=== PATIENT | male | born 1990 | race Caucasian/White ===

== ENCOUNTER 2020-04-26 11:37 | Emergency (ER) | payer OTHER ==
[~2020-04-26] VITALS: Ht 175.2 cm; Wt 81.6 kg
[2020-04-26 12:47] LABS: BASO # 0.1 10*3/uL (0.0-0.1); BASO % 1.2 % (0.0-1.0); EOS # 0.2 10*3/uL (0.0-0.4); EOS % 3.3 % (1.0-4.0); HEMATOCRIT 45.7 % (42.0-52.0); LYMPH # 1.5 10*3/uL (1.3-4.4); LYMPH % 25.5 % (27.0-41.0); MEAN CELL VOLUME 83.4 fl (80.0-94.0); MEAN CORPUSCULAR HGB 29.7 pg (27.0-31.0); MEAN CORPUSCULAR HGB CONC 35.7 g/dl (33.0-37.0); MEAN PLATELET VOLUME 10.2 fl (9.6-12.3); MONO # 0.5 10*3/uL (0.1-1.0); MONO % 8.7 % (3.0-9.0); NEUT # 3.5 10*3/uL (2.3-7.9); NEUT % 61.1 % (47.0-73.0); PLATELET COUNT AUTOMATED 253 10*3/uL (130-400); RED BLOOD COUNT 5.48 10*6/uL (4.50-5.90); RED CELL DISTRI WIDTH 11.4 % (0-14.5); WHITE BLOOD COUNT 5.7 10*3/uL (4.8-10.8)
[2020-04-26 12:58] LABS: ACT PARTIAL THROMBO TIME 27.3 SECONDS (20.0-32.1); INTERNATIONAL NORM RATIO 0.9 (2.0-3.5)
[2020-04-26 13:07] LABS: ALKALINE PHOSPHATASE 141 U/L (45-117); BUN 22 mg/dl (7-24); CHLORIDE 96 mmol/L (98-107); CREATININE 1.16 mg/dL (0.70-1.30); LIPASE 127 U/L (73-393); SGOT/AST 45 IU/L (3-35); SGPT/ALT 62 U/L (12-78); SODIUM 129 mmol/L (136-145); TOTAL PROTEIN 7.4 gm/dL (6.4-8.2); TROPONIN I 0.019 ng/ml (<0.045)
== END 2020-04-26 16:57 | disposition home or self-care (01) ==
LOC: ED 11:37
PROVIDERS: Emergency Medicine
DX: E10.65 Type 1 diabetes mellitus with hyperglycemia (principal)